=== PATIENT | female | born 1935 | race Caucasian/White ===

== ENCOUNTER 2022-01-02 01:16 | Inpatient (IN) | payer OTHER, MEDICAID ==
[~2022-01-02] VITALS: Ht 162.6 cm; Wt 33.6 kg
[2022-01-02 01:19] VITALS: BP_SYST 144
--- NOTE | 2022-01-02 01:22 | NUR ---
PER FAMILY, PATIENT'S BEDSORES HAVE GOTTEN WORSE AND "LOOK INFECTED" X5 DAYS. DID NOT SEE PMD FOR THIS, FOR UNKNOWN REASON. NO TEMPERATURE.
--- NOTE | 2022-01-02 01:45 | NUR ---
ASSUME CARE OF PT BY ESMER DONOVAN, PT IN ED 1, SON AT BEDSIDE, SON BROUGHT PT IN DUE TO PRESSURE SORES LOOKING WORSE AND NOT HEALING, PT PLACED IN A GOWN AND ON THE DIRECTOR EDUCATION. PT HAS TWO PRESSURES SORES ON COCCYX, LEFT COCCYX SORE IS PINK WITH WHITE DRAINAGE. RIGHT COCCYX PRESURE SORE RED NO DRAINAGE OR FOUL ODOR. PT BS HAS BEEN ELEVATED PER SON FOR THE LAST FEW DAYS.
[2022-01-02 01:55] LABS: BASOPHILS # (AUTO) 0.3 K/uL (0.0-0.2); EOSINOPHILS # (AUTO) 0.1 K/uL (0.0-0.4); EOSINOPHILS % (AUTO) 2.1 % (0.0-4.0); HEMATOCRIT 30.3 % (36-48); HEMOGLOBIN 9.9 g/dL (12.0-16.0); LYMPHOCYTES # (AUTO) 0.6 K/uL (1.0-5.5); LYMPHOCYTES % (AUTO) 11.5 % (20.5-51.5); MEAN CORPUSCULAR HEMOGLOBIN 31 pg (27-31); MEAN CORPUSCULAR HGB CONC 33 % (32-36); MEAN CORPUSCULAR VOLUME 93 fL (79.0-98.0); MONOCYTES # (AUTO) 0.4 K/uL (0.0-1.0); MONOCYTES % (AUTO) 8.5 % (1.7-9.3); NEUTROPHILS # (AUTO) 3.8 K/uL (1.8-7.7); NEUTROPHILS % (AUTO) 72.9 % (40.0-70.0); PLATELET COUNT (AUTO) 219 K/uL (130-430); RED BLOOD CELL COUNT(AUTO) 3.25 MIL/uL (4.2-6.2); RED CELL DISTRIBUTION WIDTH 14.9 % (9.0-15.0); WHITE BLOOD COUNT (AUTO) 5.2 K/uL (4.8-10.8)
[2022-01-02 02:14] LABS: ANION GAP 6 (5-15); CALCIUM 8.3 mg/dL (8.4-11.0); CHLORIDE 95 mmol/L (98-107); CREATININE 0.63 mg/dL (0.55-1.30); GLUCOSE 331 mg/dL (70-99); POTASSIUM 4.7 mmol/L (3.5-5.1); SODIUM SERUM 131 mmol/L (136-145); UREA NITROGEN, BLOOD 8 mg/dL (8-21)
[2022-01-02 02:19] LABS: ALANINE AMINOTRANSFERASE 18 U/L (12-78); ASPARTATE AMINOTRANSFERASE 20 U/L (10-37); TOTAL BILIRUBIN 0.2 mg/dL (0.0-1.0)
[2022-01-02] MEDS: NORMAL SALINE 5 ML DISP.SYRIN IVF SCH ×4 (02:25→22:43)
--- NOTE | 2022-01-02 02:40 | NUR ---
DR PRINCE AT BEDSIDE SPEKAING WITH SON FOR HISTORY.
[2022-01-02] MEDS ORDERED: NACL 0.9% 1,000 ML IV ONE (02:45)
[2022-01-02] MEDS ORDERED: PIPERACILLIN/TAZO 3.375 GM in NS 50 ML IV ONE (02:45)
[2022-01-02] MEDS ORDERED: PIPERACILLIN/TAZOBACTAM 3.375 GM/VIAL (ZOSYN) IV ONE (02:59)
--- NOTE | 2022-01-02 03:37 | NUR ---
ALF COLLECTED AND SENT TO LAB.
[2022-01-02] MEDS ORDERED: ACETAMINOPHEN 650 MG/20.3 ML UDC PO PRN (03:45)
--- NOTE | 2022-01-02 04:20 | NUR ---
# 16 FR Jackson catheter with use of sterile technique. Immediate return of 20 cc clear urine noted. Bedside drainage bag placed below level of bladder. Urine sample collected and sent to lab. Pt tolerated procedure well. Patient arrived with jackson in place, changed due to standard of practice prior to admission. Patient unable to toilet self.
--- NOTE | 2022-01-02 05:22 | NUR ---
Patient will be admitted to care of . Admitted to TELE unit. Will go to room 112A Belongings list completed. Complete and up to date summary report printed. SBAR report to be given at bedside with opportunity for questions.
--- NOTE | 2022-01-02 05:50 | NUR ---
ADMISSION NOTE Received patient from ER via mario, received report from ER/ RN. Patient admitted with diagnosis of INFECTED DECUBITUS ULCER. Patient oriented to hospital routine, call light, toileting and safety unable to follow instruction due to mentakl status
--- NOTE | 2022-01-02 06:06 | NUR ---
pt is an new admit from the ER, admitted for infected ulcer to buttock. pt arrive to med/surg unit stable yet oriented to self and non verbal. no s/s of distress or pain at this this time. vitals taken at bedside and within normal limits resp even while on RA. family member son and daughter at bedside. they take care of mother at home and does wound cleaning. pt is bed bound and not able to make needs known. pt has multiple wounds to right and left thigh, buttock , coccyx and right ear lobe. wounds has been dress and photos taken. wound culture and wound eval has been place. there is a surgeon consult dr brice. call light giving. place bed to lowest position.
[2022-01-02 06:07] VITALS: BP_SYST 137
[2022-01-02 06:11] LABS: BILIRUBIN,URINE NEGATIVE (NEGATIVE); BLOOD, URINE NEGATIVE (NEGATIVE); CLARITY/URINE CLEAR (CLEAR); COLOR,URINE YELLOW (YELLOW); GLUCOSE,URINE 2+ (NEGATIVE); KETONES,URINE NEGATIVE (NEGATIVE); LEUKOCYTE ESTERASE ,URINE NEGATIVE (NEGATIVE); NITRITE, URINE NEGATIVE (NEGATIVE); PH,URINE 7.5 (5.0-8.0); PROTEIN URINE NEGATIVE (NEGATIVE); UROBILINOGEN,URINE 0.2 (0.2-1.0)
[2022-01-02 06:12] LABS: RBC,URINE 0-3 /HPF (0-3)
[2022-01-02 06:13] LABS: BACTERIA,URINE None Seen /HPF (None Seen); WBC,URINE 0-3 /HPF (0-3)
[2022-01-02 06:14] LABS: MUCUS,URINE 1+ /LPF (None Seen)
--- NOTE | 2022-01-02 06:16 | NUR ---
CONSULTATION PAGED/CALLED Reason for Consultation: INFECTED DECUBITUS ULCER Person Who was Notified: DR.JARED ANGELO Consulting Physician: DR. EUN ANGELO Clearance Representative Specialty: SURGEON Ordering Physician: DR. BURR
[2022-01-02 08:00] VITALS: BP_SYST 132
--- NOTE | 2022-01-02 08:00 | NUR ---
Initial Notes Patient is Nonverbal and nonambulatory. Aroused to light stimulation. No acute s/s of distress noted. Patient's breathing is even and nonlabored, on room air. Vital signs obtained, as documented. No facial grimace noted. Safety precautions in place and call light within reach.
[2022-01-02] MEDS ORDERED: DEXTROSE 50%-WATER 50 ML DISP.SYRIN IVP PRN (09:15)
[2022-01-02] MEDS ORDERED: GLUCOSE (DEXTROSE) ORAL GEL -Adults PO PRN (09:15)
[2022-01-02] MEDS ORDERED: D5W 1,000 ML IV PRN (09:15)
[2022-01-02] MEDS: INSULIN GLARGINE 100 UNITS/ML 10 ML VIAL SUBCUT SCH (09:54)
[2022-01-02 11:31] VITALS: BP_SYST 127
[2022-01-02] MEDS: INSULIN LISPRO SLIDING SCALE 100 UNITS/ML VIAL (humaLOG) SUBCUT PRN ×3 (12:00→22:35)
--- NOTE | 2022-01-02 12:00 | NUR ---
Notes Patient has been changed and repositioned. No s.s of distress noted. Safety precautions in place and call light within reach. Family at bedside.
--- NOTE | 2022-01-02 14:30 | NUR ---
Notes Patient has been repositioned and wound care done. No s.s of distress. Tolerated well. Family at bedside. Bed at lowest position, bed alarm on, and call light within reach.
[2022-01-02] MEDS: metroNIDAZOLE 500 mg/NS 100 ML IV SCH ×3 (15:13→22:35)
[2022-01-02] MEDS: CEFEPIME 2 GM in D5W 100 ML IV SCH ×3 (15:14→23:40)
[2022-01-02 15:36] VITALS: BP_SYST 126
--- NOTE | 2022-01-02 16:05 | NUR ---
HOLD THE ANTIBIOTICS/ WAITING FOR THE LAB FOR BLOOD CULTURE: ANTIBIOTICS WAS HELD AT THIS MOMENT. WILL CONTINUE ANTIBIOTICS AFTER BLOOD CULTURE.
--- NOTE | 2022-01-02 17:10 | NUR ---
Notes Patient is resting, eyes closed. Repositioned. No s.s of distress noted. Family at bedside. Safety precautions in place and call light within reach.
--- NOTE | 2022-01-02 17:45 | NUR ---
CONSULT: Sarah PEREZ [id number] S/W: SANTHOSH
[2022-01-02] MEDS: VANCOMYCIN HCL 600 MG in NS 250 ML IV SCH (18:00)
--- NOTE | 2022-01-02 19:24 | NUR ---
Closing Notes Patient is eating dinner. Family assisting. HOB elevated. No s.s of distress noted. No facial grimaces noted. Patient's breathing is even and nonlabored, on room air. Covarrubias draining by gravity. All needs met. Safety precautions in place and call light within reach.
[2022-01-02 20:21] VITALS: BP_SYST 134
[2022-01-03] VITALS: BP_SYST 133
[2022-01-03] MEDS: CEFEPIME 2 GM in D5W 100 ML IV SCH ×3 (05:36→21:45)
[2022-01-03] MEDS: NORMAL SALINE 5 ML DISP.SYRIN IVF SCH ×3 (05:46→21:46)
[2022-01-03] MEDS: metroNIDAZOLE 500 mg/NS 100 ML IV SCH ×3 (05:48→21:45)
--- NOTE | 2022-01-03 05:50 | NUR ---
Closing Note- pt open eye to stimuli but nonverbal. Son Shelton at bedside all the night. Pressure injury on bilateral buttock-left> right. also nonblanchable and open blister like skin on bilateral ischium. Rt ear-purplish discoloration. repositioned every 2 hr and prn. off pressure on rt ear. F/C patent and drained yellow clear urine. given Vnco, Flagyl and Cefepime iv as ordered. v/s stable afebrile. kept elevate HOB to prevent aspiration. had small amount soft stool at night.
[2022-01-03 06:54] LABS: BASOPHILS % (AUTO) 0.6 % (0.0-2.0); EOSINOPHILS # (AUTO) 0.1 K/uL (0.0-0.4); EOSINOPHILS % (AUTO) 0.9 % (0.0-4.0); HEMATOCRIT 28.5 % (36-48); HEMOGLOBIN 9.7 g/dL (12.0-16.0); LYMPHOCYTES # (AUTO) 1.2 K/uL (1.0-5.5); LYMPHOCYTES % (AUTO) 15.2 % (20.5-51.5); MEAN CORPUSCULAR HEMOGLOBIN 31 pg (27-31); MEAN CORPUSCULAR HGB CONC 34 % (32-36); MEAN CORPUSCULAR VOLUME 92 fL (79.0-98.0); MONOCYTES # (AUTO) 0.5 K/uL (0.0-1.0); MONOCYTES % (AUTO) 6.5 % (1.7-9.3); NEUTROPHILS # (AUTO) 6.3 K/uL (1.8-7.7); NEUTROPHILS % (AUTO) 76.8 % (40.0-70.0); PLATELET COUNT (AUTO) 223 K/uL (130-430); RED BLOOD CELL COUNT(AUTO) 3.11 MIL/uL (4.2-6.2); RED CELL DISTRIBUTION WIDTH 14.4 % (9.0-15.0); WHITE BLOOD COUNT (AUTO) 8.2 K/uL (4.8-10.8)
[2022-01-03 07:42] LABS: ALANINE AMINOTRANSFERASE 13 U/L (12-78); ALBUMIN 1.8 g/dL (3.4-4.8); ANION GAP 3 (5-15); ASPARTATE AMINOTRANSFERASE 16 U/L (10-37); CALCIUM 7.9 mg/dL (8.4-11.0); CHLORIDE 99 mmol/L (98-107); CREATININE 0.73 mg/dL (0.55-1.30); GLUCOSE 154 mg/dL (70-99); POTASSIUM 4.3 mmol/L (3.5-5.1); SODIUM SERUM 132 mmol/L (136-145); TOTAL BILIRUBIN 0.3 mg/dL (0.0-1.0); UREA NITROGEN, BLOOD 14 mg/dL (8-21)
[2022-01-03] MEDS: INSULIN GLARGINE 100 UNITS/ML 10 ML VIAL SUBCUT SCH (08:44)
[2022-01-03 09:54] LABS: VANCOMYCIN,RANDOM 7.8 ug/mL
[2022-01-03 11:35] VITALS: BP_SYST 139
[2022-01-03 12:42] LABS: ERYTHROCYTE SEDIMENTATION RATE 61 MM/HR (0-20)
[2022-01-03] MEDS ORDERED: LORazepam 2 MG/ML VIAL IVP ONE (13:00)
--- NOTE | 2022-01-03 15:20 | NUR ---
TUG BOAT CAPTAIN ACSW Meena consulted with Dr. Nuno in response to a Hospice Eval. ACSW requested physician discuss hospice/palliative care with family prior to Social Work involvement. ACSW will continue to be available as needed.
[2022-01-03 15:36] VITALS: BP_SYST 158
[2022-01-03] MEDS: VANCOMYCIN HCL 600 MG in NS 250 ML IV SCH (16:11)
--- NOTE | 2022-01-03 16:52 | NUR ---
ST EVALUATION COMPLETED. ST TX NOT INDICATED AT THIS TIME. RECOMMEND PO DIET OF PUREE AND HONEY LIQUIDS. 1:1 FEEDER AND FULL ASPIRATION PRECAUTIONS.
[2022-01-03] MEDS: INSULIN LISPRO SLIDING SCALE 100 UNITS/ML VIAL (humaLOG) SUBCUT PRN (18:54)
[2022-01-04 02:04] VITALS: BP_SYST 128
[2022-01-04] MEDS: metroNIDAZOLE 500 mg/NS 100 ML IV SCH ×3 (05:11→20:23)
[2022-01-04] MEDS: NORMAL SALINE 5 ML DISP.SYRIN IVF SCH ×3 (05:11→20:24)
[2022-01-04] MEDS: CEFEPIME 2 GM in D5W 100 ML IV SCH ×3 (05:11→20:24)
[2022-01-04 06:55] LABS: BASOPHILS % (AUTO) 0.7 % (0.0-2.0); EOSINOPHILS # (AUTO) 0.1 K/uL (0.0-0.4); EOSINOPHILS % (AUTO) 0.9 % (0.0-4.0); HEMATOCRIT 25.6 % (36-48); HEMOGLOBIN 8.7 g/dL (12.0-16.0); LYMPHOCYTES # (AUTO) 1.5 K/uL (1.0-5.5); LYMPHOCYTES % (AUTO) 21.6 % (20.5-51.5); MEAN CORPUSCULAR HEMOGLOBIN 31 pg (27-31); MEAN CORPUSCULAR HGB CONC 34 % (32-36); MEAN CORPUSCULAR VOLUME 91 fL (79.0-98.0); MONOCYTES # (AUTO) 0.6 K/uL (0.0-1.0); MONOCYTES % (AUTO) 8.3 % (1.7-9.3); NEUTROPHILS # (AUTO) 4.8 K/uL (1.8-7.7); NEUTROPHILS % (AUTO) 68.5 % (40.0-70.0); PLATELET COUNT (AUTO) 216 K/uL (130-430); RED BLOOD CELL COUNT(AUTO) 2.82 MIL/uL (4.2-6.2); RED CELL DISTRIBUTION WIDTH 14.6 % (9.0-15.0)
[2022-01-04 08:08] LABS: ANION GAP 7 (5-15); CALCIUM 7.7 mg/dL (8.4-11.0); CHLORIDE 99 mmol/L (98-107); CREATININE 0.55 mg/dL (0.55-1.30); GLUCOSE 170 mg/dL (70-99); SODIUM SERUM 134 mmol/L (136-145); UREA NITROGEN, BLOOD 11 mg/dL (8-21)
--- NOTE | 2022-01-04 11:31 | NUR ---
Cst MANAGER NEONATAL received a hospice referral to speak to pt and family. MANAGER NEONATAL introduced self to pts. son, Shelton Bowen at bedside and gave him her business card. Son was emotional stating he does not want his mom to suffer. He wants to do what is right. Son stated pt. may go to surgery for a debridement, but prior to the procedure, son and dtr want to discuss a medical directive. MANAGER NEONATAL shared with him what Hospice does. MANAGER NEONATAL stated the best thing for him to do weather they decide on hospice today or in a few months, is to call a couple of Hospice companies to see what services they provide. Son and daughter can decide on hospice when it is right for the pt. MANAGER NEONATAL educated son on hospice and some doctors may recommend a hospice co. MANAGER NEONATAL let son know the decision is the families and handed son a list of some hospice agencies. During this discussion, Dr. Nuno came in to evaluate pt. Son took the opportunity to ask Dr. Nuno some questions. Dr. Nuno explained the pt. had poor circulation and the bed sores would continue. During this time, Dr. Garnett came in to state the pt. would not need debridement at this time. Dr. Nuno will review the bone scan and could d/c pt. home with HH. MANAGER NEONATAL asked son to call a hospice co. to see what services they can provide for support and to keep pt. comfortable. Son agreed to call. MANAGER NEONATAL will remain available as needed. Addendum: 01/04/22 at 1252 by Bonnie MEDINA Cst MANAGER NEONATAL gave pts. Shelton gilbert a brochure for [facility] and explained if he called while pt. is in the hospital and wanted to begin hospice services, Dr. Nuno could put in the Hospice order. If the family wants to wait, they would go through pts. PCP.
--- NOTE | 2022-01-04 11:40 | NUR ---
Paper Mill Manager STORAGE SPECIALIST received an order to speak to family re. Hospice resources. STORAGE SPECIALIST called and spoke to dtr, Alecia who asked if STORAGE SPECIALIST could wait until other Dtr. Yessy finishes with her Covid test since she is not vaccinated. STORAGE SPECIALIST will call in about 30 min. Addendum: 01/04/22 at 1250 by Bonnie Padilla STORAGE SPECIALIST Paper Mill Manager Wrong Entry. +++++++++++++++++++++++
[2022-01-04] MEDS ORDERED: INSU100V9 SUBCUT (11:44)
[2022-01-04] MEDS ORDERED: DOXY100T2 PO (11:44)
[2022-01-04 12:30] VITALS: BP_SYST 132
[2022-01-04] MEDS: INSULIN GLARGINE 100 UNITS/ML 10 ML VIAL SUBCUT SCH (13:32)
[2022-01-04 16:17] VITALS: BP_SYST 130
--- NOTE | 2022-01-04 18:00 | NUR ---
Miss Bowen has been assessed as indicated. She is non verbal and requires kristopher p stimuli to respond. Her son is at the bedside at all times. DNR status has been discussed and explained with the son. He has been educated on arousing patient before feeding and assisted to turn her frequently. He has agreed to have HHC. this is being planned.
[2022-01-04] MEDS: VANCOMYCIN HCL 600 MG in NS 250 ML IV SCH (18:50)
--- NOTE | 2022-01-04 19:15 | NUR ---
Handoff has been given to Riddhi
[2022-01-04 20:00] VITALS: BP_SYST 129
--- NOTE | 2022-01-04 21:25 | NUR ---
positiv wound cultures x2. Itz made aware and informed of the current antibiotic treatements . No new orders at this time
--- NOTE | 2022-01-04 23:58 | NUR ---
PATIENT IN BED. NO ACUTE DISTRESS NOTED. TURNED REPOSITIONED Q2. DRESSING CHANGED TO THE SACRUM AREA. WILL CONTINUE TO MONITOR.
--- NOTE | 2022-01-05 03:58 | NUR ---
Swallow Eval Called Left a message to Eri, regarding swallow eval ordered by Dr. Nuno.
[2022-01-05] MEDS: CEFEPIME 2 GM in D5W 100 ML IV SCH ×3 (05:22→21:51)
[2022-01-05] MEDS: metroNIDAZOLE 500 mg/NS 100 ML IV SCH ×3 (05:23→21:50)
[2022-01-05] MEDS: NORMAL SALINE 5 ML DISP.SYRIN IVF SCH ×3 (05:23→22:27)
--- NOTE | 2022-01-05 06:34 | NUR ---
PATIENT TURNED REPOSITIONED Q2. NO ACUTE DISTRESS NOTED. BS 74. FAMILY AT THE BEDSIDE. WILL CONTINUE TO MONITOR.
--- NOTE | 2022-01-05 06:38 | NUR ---
PATIENT'S FAMILY AT THE BEDSIDE. FAMILY COMPLAINED THAT IV SITE WAS LEAKING AT THE BEGINNING OF THE SHIFT. CHARGE NURSE ATTEMPTED TO REINSERT IV. FAMILY REFUSED. FAMILY STATED, I DON'T WANT HER STUCK TOO MANY TIMES. WILL CONTINUE TO MONITOR. IV ANTIBIOTICS PAST DUE.
[2022-01-05 09:17] VITALS: BP_SYST 125
[2022-01-05] MEDS: INSULIN GLARGINE 100 UNITS/ML 10 ML VIAL SUBCUT SCH (11:24)
[2022-01-05] MEDS: INSULIN LISPRO SLIDING SCALE 100 UNITS/ML VIAL (humaLOG) SUBCUT PRN (11:34)
[2022-01-05] MEDS ORDERED: FLUCONAZOLE 200 MG TABLET (DIFLUCAN) PO ONE (12:00)
[2022-01-05 12:25] VITALS: BP_SYST 157
--- NOTE | 2022-01-05 13:16 | NUR ---
Dr. Alvarado at bedside, spoke to both son and daughter and explained plan of care extensively with family.
[2022-01-05 15:28] VITALS: BP_SYST 151
[2022-01-05] MEDS: VANCOMYCIN HCL 600 MG in NS 250 ML IV SCH (16:00)
--- NOTE | 2022-01-05 17:26 | NUR ---
ST EVALUATION COMPLETED. ST TX NOT INDICATED AT THIS TIME. RECOMMEND PO DIET OF PUREE/NECTAR THICK LIQUID. 1:1 FEEDER AND FULL ASPIRATION PRECAUTIONS. PT MAY BENEFIT FROM ALTERNATIVE MEANS OF NUTRITION TO MAINTAIN CALORIC INTAKE AND HYDRATION.
--- NOTE | 2022-01-05 18:15 | NUR ---
Dietitian Recommendations * Continue diet per ST: pureed textures with 1:1 feeder * Encourage good PO intake >75% meals * Wound supplements: daily MVI, 250mg VIT C BID, 220mg Zincate BID x 14 days, Jeffery BID * Recommend Prosource TID * Provide snacks as requested Please refer to Nutritional Assessment for details, thanks! CC, MPH, NEYMAR Addendum: 01/05/22 at [address] Amended: Links added.
[2022-01-05] MEDS ORDERED: D5/0.45 NS 1,000 ML IV SCH (18:45)
--- NOTE | 2022-01-05 19:53 | NUR ---
Closing Notes: Full SBAR report given to VENUS Hannon, pt. had an episode of hypoglycemia bs was 50 and after recheck bs was 47, oral gel was attempted to be given but pt. was unable to swallow, d5 ivpush was given instead. When pushing d5 iv infiltrated and vancomycin was unable to be given endorsed to Riddhi. Skin assessment was written and signed by bakari, given to Riddhi to sign and turn in. Pts. blood sugar after d5 administration was 218. Dr. Christiano Xiong was notified at time of episode and orders for additional iv fluids were entered and endorsed to Riddhi.
[2022-01-05 20:00] VITALS: BP_SYST 134
--- NOTE | 2022-01-06 00:03 | NUR ---
Patient in bed. No acute distress noted. Turned reposition q2. Will continue to monitor.
[2022-01-06 00:16] VITALS: BP_SYST 127
[2022-01-06] MEDS: metroNIDAZOLE 500 mg/NS 100 ML IV SCH (04:30)
[2022-01-06] MEDS: CEFEPIME 2 GM in D5W 100 ML IV SCH ×2 (04:30→14:00)
[2022-01-06] MEDS: NORMAL SALINE 5 ML DISP.SYRIN IVF SCH ×2 (04:30→14:00)
--- NOTE | 2022-01-06 07:24 | NUR ---
Opening Note Received full SBAR report from VENUS Hannon. Pt. is currently sleeping, no signs of acute distress. Pt. is being turned every 2 hours and wounds are being monitored. Pt.'s son is at bedside inquiring about discharge will follow up with MD and manager case management. Pt's son is very anxious and constantly needing reassurance.
[2022-01-06] MEDS ORDERED: FLUCONAZOLE 200 MG TABLET (DIFLUCAN) PO SCH (09:00)
[2022-01-06] MEDS: INSULIN GLARGINE 100 UNITS/ML 10 ML VIAL SUBCUT SCH (11:25)
[2022-01-06] MEDS: INSULIN LISPRO SLIDING SCALE 100 UNITS/ML VIAL (humaLOG) SUBCUT PRN ×2 (11:40→17:55)
[2022-01-06 12:23] VITALS: BP_SYST 147
[2022-01-06] MEDS ORDERED: COLL30OI2 TP (12:24)
--- NOTE | 2022-01-06 12:30 | NUR ---
FINAL INSPECTOR MOTORCYLES ACSW Meena sent packet for review to [facility] F:
--- NOTE | 2022-01-06 12:39 | NUR ---
Canvas Cutter Machine PLATER HOT DIP met with son, Shelton in the nurses station and asked if he had a chance to contact [facility] or [facility], both contracted with [facility]. Shelton said his mom was going home. Shivani Benoit stopped and introduced self and confirmed to family that hospice would be a good support. At time, Dr. Alvarado came and stated Hospice has all been set up with [facility] and [facility] will contact PLATER HOT DIP Meena. PLATER HOT DIP will remain available as needed.
[2022-01-06 15:24] VITALS: BP_SYST 122
[2022-01-06] MEDS: VANCOMYCIN HCL 600 MG in NS 250 ML IV SCH (16:00)
[2022-01-06 17:16] VITALS: BP_SYST 125
--- NOTE | 2022-01-06 18:58 | NUR ---
Discharge summary Pt. is being sent home via ambulance with [facility]. Discharge paperwork was thoroughly discussed with vladimir Peoples at bedside. Pt. is non verbal responds to only painful stimuli. Dressing changes done before discharge along with pericare. IV was removed, catheter intact upon removal.
== END 2022-01-06 19:00 | disposition home health service (06) | DRG 539 ==
LOC: SED 01:16 → SMU 03:38
PROVIDERS: ADMIT Internal Medicine; ATTEND Internal Medicine
DX: M46.28 Osteomyelitis of vertebra, sacral and sacrococcygeal region (principal); E43 Unspecified severe protein-calorie malnutrition; R64 Cachexia; Z68.1 Body mass index [BMI] 19.9 or less, adult; L89.159 Pressure ulcer of sacral region, unspecified stage; D64.9 Anemia, unspecified; F03.90 Unspecified dementia, unspecified severity, without behavioral disturbance, psychotic disturbance, mood disturbance, and anxiety; E11.9 Type 2 diabetes mellitus without complications; Z74.01 Bed confinement status; Z20.822 Contact with and (suspected) exposure to COVID-19
CPT/HCPCS: 36415; 72170-TC; 78300-TC; 80048; 80053; 80202; 81000; 82962; 83735; 84311; 85025; 85651-TC; 87040; 87070-TC; 87186-TC; 92610-GN; 96365; 99285; A9503; J0692; J1815; J2543; J3370; J3490; J7050; J7060